=== PATIENT | male | born 1970 | race Caucasian/White ===

== ENCOUNTER 2020-04-14 11:50 | Emergency (ER) | payer OTHER, SELFPAY ==
[2020-04-14 11:58] VITALS: BP 171/93; PULSE 74; RESP 16; TEMP 36.3; O2SAT 98
--- NOTE | 2020-04-14 12:16 | ED.GENADULT ---
HPI - General Adult General Chief complaint: Skin/Abscess/Foreign Body Stated complaint: rash Time Seen by Provider: 04/14/20 12:16 Source: patient Mode of arrival: ambulatory Limitations: no limitations History of Present Illness HPI narrative: 49-year-old male patient presents to the [facility] with complaints of a rash to bilateral upper and lower extremities as well as the back and neck area for the past 8 days. 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 Patient states about 6 days ago he saw an online doctor and was prescribed a 5-day course of steroids. Patient states he finished the course but states that the rash did clear up around the neck but continues to have itching to bilateral upper and lower extremities as well as now it is appears to be spreading to the back. Patient denies any chest pain or shortness of breath. Related Data Allergies Allergy/AdvReac Type Severity Reaction Status Date / Time No Known Allergies Allergy Verified 04/14/20 12:09 STRAWBERRIES Allergy Mild Hives / Uncoded 04/14/20 12:09 Red Face Review of Systems Review of Systems: Narrative: CONSTITUTIONAL: Denies fever, chills, or sweats. EYES: Denies visual changes, redness, or discharge. ENT: Denies rhinorrhea, congestion, sore throat, or otalgia. CARDIOVASCULAR: Denies chest pain, palpitations, or edema. RESPIRATORY: Denies cough or dyspnea. GASTROINTESTINAL: Denies abdominal pain, nausea, vomiting, or diarrhea. GENITOURINARY: Denies dysuria or hematuria. SKIN: Positive rash with itching to bilateral upper extremities, bilateral lower extremities, neck and back MUSCULOSKELETAL: Denies back pain, joint pain, or myalgia. NEUROLOGIC: Denies headache, numbness, or weakness. PSYCHIATRIC: Denies anxiety or depression. [facility] Past Medical History Medical History (Updated 04/14/20 @ 12:23 by ANNI Lawson) Fractures Leg, arm, collarbone Surgical History Surgical History (Updated 04/14/20 @ 12:17 by ANNI Lawson) History of orthopedic surgery Right hand due to infection Family History Family History Father Family history of cardiovascular disease, Onset Age: 42 Social History Social History Smoking status: Former smoker Smoking end date: 07/18/15 Alcohol intake: current Comments At the time of my signature I agree with nursing past medical history, surgical, social, and family history. There is no relevant family history pertinent to the presenting complaint. Exam Narrative: Exam Narrative: GENERAL: Well-appearing, well-nourished, and in no acute distress. HEAD: Normocephalic, atraumatic. EYES: PERRLA and EOMI. ENT: Nares clear, no rhinorrhea or epistaxis. Mucous membranes moist. NECK: Supple. No lymphadenopathy CHEST: Clear to auscultation. No respiratory distress. HEART: Regular rate and rhythm. No murmur heard. Normal peripheral pulses. ABDOMEN: Soft, nontender, nondistended, normal active bowel sounds. EXTREMITIES: Normal range of motion. No edema. SKIN: Warm, dry, patient has rash to bilateral upper extremities that appear to be linear and scaly. They are in various areas over the upper extremity in the bends of the elbows. Patient has a similar rash noted to bilateral lower extremities behind the knees as well as similar rash noted to the left flank area. No obvious rash noted to the neck at this time. NEURO: No focal deficits. Alert and oriented x3. Course Vital Signs Vital signs: Vital Signs Temperature 36.3 C L 04/14/20 11:58 Pulse Rate 74 04/14/20 11:58 Respiratory Rate 16 04/14/20 11:58 Blood Pressure 171/93 H 04/14/20 11:58 Pulse Oximetry 98 04/14/20 11:58 Temperature 36.3 C L 04/14/20 11:58 Pulse Rate 74 04/14/20 11:58 Respiratory Rate 16 04/14/20 11:58 Blood Pressure
== END 2020-04-14 12:48 | disposition home or self-care (01) ==
PROVIDERS: Emergency Provider Nurse Practitioner Family; PCP Internal Medicine
DX: L23.7 Allergic contact dermatitis due to plants, except food (principal); Z87.891 Personal history of nicotine dependence
CPT/HCPCS: 99213; G0463

== ENCOUNTER 2020-09-25 13:16 | Outpatient (CLI) | payer OTHER, SELFPAY | END 2020-09-25 13:17 | disposition home or self-care (01) | LOC: ANHCOVIDVC 13:16 | PROVIDERS: PCP Internal Medicine | DX: Z23 Encounter for immunization (principal) | CPT/HCPCS: 0001A; 91300 ==

== ENCOUNTER 2020-10-16 13:19 | Outpatient (CLI) | payer OTHER, SELFPAY | END 2020-10-16 13:20 | disposition home or self-care (01) | LOC: ANHCOVIDVC 13:19 | PROVIDERS: PCP Internal Medicine | DX: Z23 Encounter for immunization (principal) | CPT/HCPCS: 0002A; 91300 ==

== ENCOUNTER 2021-03-13 11:48 | Emergency (ER) | payer OTHER, SELFPAY ==
[2021-03-13 11:54] VITALS: BP 172/92; PULSE 95; RESP 16; TEMP 37.3; O2SAT 97
[2021-03-13] MEDS: diphenhydrAMINE HCL ELIXIR 12.5 MG/5 ML UDC 50 MG PO (12:04)
[2021-03-13] MEDS: methylPREDNISolone SOD SUCC 125 MG VIAL IM (12:04)
--- NOTE | 2021-03-13 12:11 | ED.SKABFB ---
HPI - Skin/Abscess/Foreign Bdy General Chief complaint: Skin/Abscess/Foreign Body Stated complaint: pos insect sting Source: patient and RN notes reviewed Limitations: no limitations History of Present Illness HPI narrative: The patient, previously mostly healthy, presents with skin eruption. Patient states he mowed over some wasps, which bit him on the extremity and neck. He complains of mild pain but increasing itching especially of his lips/face, extremities and t palms. Symptoms are mild to moderate, and unrelieved by anything as he came directly here. Related Data Allergies Allergy/AdvReac Type Severity Reaction Status Date / Time kiwi AdvReac Intermediate Hives Verified 03/13/21 12:08 STRAWBERRIES Allergy Mild Hives / Uncoded 03/13/21 12:08 Red Face Review of Systems Review of Systems: General/Constitutional: No weight loss,fever Eyes: N0: Redness,discharge Ears/Nose/Throat: No: Epistaxis,ear discharge Respiratory: Denies: Hemoptysis Gastrointestinal: No Vomiting, Bleeding-rectal Skin: No Lumps, REPORTS eruption Neurologic: No Focal Weakness,Sz Hematologic: Denies: Petechiae/Purpura Psychiatric: No: Suicida ideationl All Other Systems: Reviewed and Negative [facility] Past Medical History Medical History Fractures Leg, arm, collarbone Hyperlipidemia Surgical History Surgical History History of orthopedic surgery Right hand due to infection Family History Family History Father Family history of cardiovascular disease, Onset Age: 42 Social History Social History Smoking packs per day: 1 Smoking cigarettes per day: 20.0 Years smoked: 18 Smoking pack-years: 18.00 Smoking status: Former smoker Tobacco type: cigarettes and e-cigarettes/vaping Second hand tobacco smoke exposure: No Smoking end date: 07/18/15 Alcohol intake: current Drinks per week: 4 Comments At time of signature, agree with nursing past medical, surgical, social and family history. There is no relevant family history pertinent to the presenting complaint Exam Narrative: General Appearance: Overweight/well nourished Head: Normocephalic Eye: PERRLA, Conjunctiva clear Ear: External ear normal Nose: Normal nose, Nare clear Mouth/Throat: Scant lip edema appearing Neck Exam: Supple Respiratory: Airway patent, No respiratory distress, CTA Musculoskeletal: Moves all extremities, Non tender Skin: Warm, Dry; polymorphic, blanching urticarial eruption bilateral axilla and trunk Neurological: A&O x3, Normal affect Course Vital Signs Vital signs: Vital Signs Temperature 99.1 F 03/13/21 11:54 Pulse Rate 95 03/13/21 11:54 Respiratory Rate 16 03/13/21 11:54 Blood Pressure 172/92 H 03/13/21 11:54 Pulse Oximetry 97 03/13/21 11:54 Temperature 99.1 F 03/13/21 11:54 Pulse Rate 95 03/13/21 11:54 Respiratory Rate 18 03/13/21 12:50 Blood Pressure 172/92 H 03/13/21 11:54 Pulse Oximetry 99 03/13/21 12:50 Discharge Plan Discharge Clinical Impression: Urticaria Patient Disposition: Home, Self-Care Condition: Improved Instructions: Urticaria (ED) Prescriptions: New loratadine [Wal-itin] 10 mg tablet 10 mg PO DAILY Qty: 20 RF: 0 prednisone 20 mg tablet 80 mg PO DAILY Qty: 20 RF: 0 famotidine [Pepcid] 20 mg tablet 20 mg PO DAILY Qty: 20 RF: 0 epinephrine 0.3 mg/0.3 mL auto-injector 0.3 mg IM ONCE Qty: 1 RF: 0 No Action amlodipine [Norvasc] 2.5 mg tablet 2.5 mg PO DAILY Qty: 90 RF: 1 omega-3 fatty acids [Fish Oil Concentrate] 1,000 mg capsule 1,000 mg PO BID Qty: 90 RF: 1 atorvastatin 20 mg tablet 20 mg PO DAILY Qty: 30 RF: 5 Follow-up/Referrals: Vijay Finley DO [[facility]
--- NOTE | 2021-03-13 12:48 | PC.NURSE ---
NO IMPROVEMENT IN SX. PT NOW HAS HIVES NOTED TO BILAT AXILLA. NO CHANGE IN RESP STATUS. NO DIFFICULTY BREATHING OR TONGUE SWELLING NOTED.
[2021-03-13 12:50] VITALS: RESP 18; O2SAT 99
== END 2021-03-13 12:50 | disposition home or self-care (01) ==
PROVIDERS: Emergency Provider Emergency Medicine; PCP Internal Medicine
DX: L50.9 Urticaria, unspecified (principal); Z87.891 Personal history of nicotine dependence; E78.5 Hyperlipidemia, unspecified
CPT/HCPCS: 96372; 99213; A9270; G0463; J2930